=== PATIENT | female | born 1955 | race Caucasian/White ===

== ENCOUNTER 2024-06-20 11:02 | Emergency (ER) | payer MEDICARE, BC, OTHER ==
[~2024-06-20] VITALS: Ht 167.6 cm; Wt 66.7 kg
[2024-06-20] MEDS ORDERED: Dexamethasone Sod Phos 10 MG/ML 1ML VIAL PO ONE (11:35)
== END 2024-06-20 13:39 | disposition home or self-care (01) ==
LOC: EDSEX 11:02 → ER 11:02
DX: J06.9 Acute upper respiratory infection, unspecified (principal); F17.200 Nicotine dependence, unspecified, uncomplicated
CPT/HCPCS: 71046; 99284-25; J1100